=== PATIENT | female | born 1985 | race Two or more races ===

== ENCOUNTER 2018-07-12 13:20 | Observation (INO) | payer BC, OTHER ==
[~2018-07-12] VITALS: Ht 167.6 cm; Wt 93.0 kg
[2018-07-12] MEDS ORDERED: PREN-96 PO (14:09)
[2018-07-12] MEDS ORDERED: LACTATED RINGER'S 500 ML IV ONE ×2 (14:30→17:15)
[2018-07-12 15:23] LABS: Urine Bacteria MOD /hpf (None Seen); Urine Blood 1+ /uL (Negative); Urine Budding Yeast FEW /hpf (None Seen); Urine Mucus FEW (None Seen); Urine Specific Gravity 1.022 (1.001-1.035); Urine WBC 61 /hpf (0 - 5)
[2018-07-12 15:59] LABS: Alcohol, Urine < 3.0 mg/dL (0-5); Amphetamine Screen, Urine NEGATIVE (NEGATIVE); Barbiturate Scree,Urine NEGATIVE (NEGATIVE); Benzodiazephine Screen, Urine NEGATIVE (NEGATIVE); Cannabinoid Screen, Urine NEGATIVE (NEGATIVE); Cocaine Screen, Urine NEGATIVE (NEGATIVE); Opiate Scree,Urine NEGATIVE (NEGATIVE); Phencyclidine Screen, Urine NEGATIVE (NEGATIVE)
[2018-07-12] MEDS ORDERED: ACETAMINOPHEN 325 MG TAB PO ONE (17:00)
[2018-07-12] MEDS ORDERED: LACTATED RINGER'S 1,000 ML IV SCH ×2 (17:15→17:45)
[2018-07-12 18:10] LABS: Basophils # (auto) 0 uL; Basophils % (auto) 0.2 % (0.0-2.0); Eosinophils # (auto) 0 uL; Eosinophils % (auto) 0.2 % (0.0-7.0); Hematocrit 35.2 % (36.0-46.0); Hemoglobin 11.7 g/dL (12.2-16.2); Lymphocytes # (auto) 0.5 uL; Lymphocytes % (auto) 10.3 % (10.0-50.0); Mean Corpuscular Hemoglobin 30.7 pg (28.0-32.0); Mean Corpuscular Hgb Conc. 33.3 g/dL (32.0-36.0); Mean Corpuscular Volume 92.2 fL (80.0-100.0); Monocytes # (auto) 0.7 uL; Monocytes % (auto) 13.3 % (0.0-12.0); Platelet Count (auto) 149 10^3/uL (140-450); Red Blood Cells 3.81 10^6/uL (4.0-5.20); Red Cell Distribution Width 14.5 % (11.8-14.3); White Blood Cell 5.2 10^3/uL (4.4-10.8)
[2018-07-12 18:34] LABS: Albumin 2.6 g/dL (3.4-5.0); Calcium 8.5 mg/dL (8.5-10.1)
[2018-07-12 18:38] LABS: BUN/Creatinine Ratio 5.6; Bilirubin, Total 0.3 mg/dL (0.2-1.0); Total Protein 6.2 g/dL (6.4-8.2)
[2018-07-12] MEDS ORDERED: ceFAZolin 1GM/50ML 50 ML IV SCH (22:00)
== END 2018-07-12 20:15 | disposition home or self-care (01) | DRG 833 ==
LOC: LDRP 13:20
PROVIDERS: ADMIT Obstetrics & Gynecology; ATTEND Obstetrics & Gynecology
DX: O36.8130 Decreased fetal movements, third trimester, not applicable or unspecified (principal); O62.9 Abnormality of forces of labor, unspecified; Z3A.39 39 weeks gestation of pregnancy
CPT/HCPCS: 36415; 59025; 76775; 76818; 80053; 80307; 81001; 81002; 85025; 87086; 96365; G0378; J0690

== ENCOUNTER 2018-07-14 10:35 | Inpatient (IN) | payer BC ==
[2018-07-14] VITALS (8 sets, daily range): BP systolic 100–118; BP diastolic 54–67
[~2018-07-14] VITALS: Ht 167.6 cm; Wt 93.0 kg
[~2018-07-14 10:35] MED LIST: PREN-96 PO
[2018-07-14] MEDS ORDERED: LACTATED RINGER'S 1,000 ML IV SCH (10:56)
[2018-07-14] MEDS ORDERED: LACT. RINGERS/OXYTOCIN 20UNITS 1,000 ML IV SCH ×2 (10:56→11:45)
[2018-07-14] MEDS ORDERED: METHYLERGONOVINE MALEATE 0.2 MG/ML AMP IM PRN (11:00)
[2018-07-14] MEDS ORDERED: CARBOPROST TROMETHAMINE 250 MCG/1ML VIAL IM PRN (11:00)
[2018-07-14] MEDS ORDERED: NALBUPHINE HCL 10 MG/1ml INJECTION IV PRN (11:00)
[2018-07-14] MEDS ORDERED: PHISODERM TOP SOLN 240ML BTL TOP PRN (11:00)
[2018-07-14] MEDS ORDERED: LIDOCAINE 2%HCL (LOCAL ANESTH.) INJ 20ML MDV ID PRN (11:00)
[2018-07-14 11:44] LABS: Basophils # (auto) 0 uL; Basophils % (auto) 0.2 % (0.0-2.0); Eosinophils # (auto) 0 uL; Eosinophils % (auto) 0.8 % (0.0-7.0); Hematocrit 37.3 % (36.0-46.0); Hemoglobin 12.4 g/dL (12.2-16.2); Lymphocytes # (auto) 0.6 uL; Lymphocytes % (auto) 17.2 % (10.0-50.0); Mean Corpuscular Hemoglobin 30.8 pg (28.0-32.0); Mean Corpuscular Hgb Conc. 33.3 g/dL (32.0-36.0); Mean Corpuscular Volume 92.5 fL (80.0-100.0); Monocytes # (auto) 0.3 uL; Monocytes % (auto) 10.5 % (0.0-12.0); Neutrophils # (auto) 2.3 uL; Neutrophils % (auto) 71.3 % (37.0-80.0); Nucleated Red Blood Cells % 0.1 %; Platelet Count (auto) 160 10^3/uL (140-450); Red Blood Cells 4.03 10^6/uL (4.0-5.20); Red Cell Distribution Width 15.1 % (11.8-14.3); White Blood Cell 3.2 10^3/uL (4.4-10.8)
[2018-07-14] MEDS ORDERED: TERBUTALINE SULFATE 1 MG/ML 1ML VIAL SC ONE (11:45)
[2018-07-14 11:54] LABS: Urine Bacteria FEW /hpf (None Seen); Urine Blood 2+ /uL (Negative); Urine Specific Gravity 1.006 (1.001-1.035); Urine WBC 3 /hpf (0 - 5)
[2018-07-14 12:00] LABS: Calcium 8.7 mg/dL (8.5-10.1); Potassium 3.6 mmol/L (3.5-5.1)
[2018-07-14] MEDS: ceFAZolin 1GM/50ML 50 ML IV SCH ×2 (12:00→19:35)
[2018-07-14 12:02] LABS: INR 0.88 (0.9-1.15); Partial Thromboplastin Time 25.9 sec (23.78-33.04); Prothrombin Time 9.5 sec (9.27-12.13)
[2018-07-14 12:06] LABS: Albumin 2.7 g/dL (3.4-5.0); BUN/Creatinine Ratio 7.9; Bilirubin, Total 0.3 mg/dL (0.2-1.0); Total Protein 6.5 g/dL (6.4-8.2)
[2018-07-14] MEDS ORDERED: fentaNYL CITRATE 100 MCG/2 ML VL IV ONE (14:15)
[2018-07-14] MEDS ORDERED: ePHEDrine SULFATE 50 MG/ML AMP IV ONE (14:15)
[2018-07-14] MEDS ORDERED: LIDOCAINE HCL 2 %PF INJ 10ML AMP IJ ONE (14:15)
[2018-07-14] MEDS ORDERED: fentaNYL W ROPIVACAINE 150 ML EPI SCH (14:15)
[2018-07-14] MEDS ORDERED: LIDOCAINE W/ EPINEPHRINE 1 % INJ 30ML ONE (15:10)
[2018-07-14] MEDS ORDERED: PROMETHAZINE HCL 25 MG/ML 1ML IV ONE (15:34)
[2018-07-14] MEDS ORDERED: PROMETHAZINE HCL 25 MG/ML 1ML ONE (15:34)
--- NOTE | 2018-07-14 18:15 | NUR ---
Received report from Danyell JENKINS, assumed care. Initiated assessment. Assistance provided to bathroom. Pt voided 800 cc's. Pt denies dizziness, and pain. POC reviewed. Assessment initiated. See flow sheet for complete data. Assistance with provided at length. Pt affect is flat, does not make eye contact or speak to this RN. Pashto speaking only.Fob at bedside, interpreting. With assist , latched and suckled for a total of one hour.
[2018-07-14] MEDS ORDERED: AMMONIA 0.33 ML INHALANT IN ONE (18:28)
[2018-07-14] MEDS ORDERED: LACT. RINGERS/OXYTOCIN 20UNITS 500 ML IV ONE (19:35)
[2018-07-14] MEDS: WITCH HAZEL-GLYCERIN PAD TOP PRN ×2 (19:38→19:42)
[2018-07-14] MEDS: DERMOPLAST 60ML BOTTLE TOP PRN ×2 (19:39→19:42)
[2018-07-14] MEDS ORDERED: ACETAMINOPHEN 325 MG TAB PO PRN (19:45)
--- NOTE | 2018-07-14 21:00 | NUR ---
Assistance provided with , infant at breast. Pt denies pain.
[2018-07-15 03:25] VITALS: BP 104/60
[2018-07-15] MEDS: ceFAZolin 1GM/50ML 50 ML IV SCH ×3 (04:02→19:50)
[2018-07-15] MEDS: IBUPROFEN 600 MG TAB PO PRN ×2 (04:04→20:43)
[2018-07-15 06:06] LABS: RPR Non Reactive (Non Reactive)
[2018-07-15 07:00] VITALS: BP 126/62
[2018-07-15 09:36] LABS: Basophils # (auto) 0 uL; Basophils % (auto) 0.2 % (0.0-2.0); Eosinophils # (auto) 0 uL; Eosinophils % (auto) 0.6 % (0.0-7.0); Hematocrit 34.3 % (36.0-46.0); Hemoglobin 11.5 g/dL (12.2-16.2); Lymphocytes % (auto) 22.1 % (10.0-50.0); Mean Corpuscular Hemoglobin 31.1 pg (28.0-32.0); Mean Corpuscular Hgb Conc. 33.6 g/dL (32.0-36.0); Mean Corpuscular Volume 92.6 fL (80.0-100.0); Monocytes # (auto) 0.4 uL; Monocytes % (auto) 9.6 % (0.0-12.0); Neutrophils # (auto) 2.9 uL; Neutrophils % (auto) 67.5 % (37.0-80.0); Platelet Count (auto) 140 10^3/uL (140-450); Red Cell Distribution Width 14.7 % (11.8-14.3); White Blood Cell 4.3 10^3/uL (4.4-10.8)
[2018-07-15 11:00] VITALS: BP 110/68
--- NOTE | 2018-07-15 13:48 | NUR ---
DR. ANDINO AT PT BEDSIDE. DR. ANDINO NOTICED PT THAT SHE WILL BE DISCHARGED HOME TOMORROW, STILL AWAITING 48 HOUR BLOOD CULTURE RESULT. READ BACK AND VERIFIED ORDER. WILL CONTINUE TO MONITOR. Addendum: 07/16/18 at 1300 by Kathe Sousa RN DR. ANDINO NOTIFIED PATIENT NOT NOTICED.
[2018-07-15 15:00] VITALS: BP 122/80
[2018-07-15 19:00] VITALS: BP 132/84
[2018-07-15 22:54] VITALS: BP 121/77
[2018-07-16 02:50] VITALS: BP 114/92
[2018-07-16] MEDS: ceFAZolin 1GM/50ML 50 ML IV SCH (04:16)
[2018-07-16 07:00] VITALS: BP 107/59
--- NOTE | 2018-07-16 08:00 | NUR ---
report given to maximo [place] rn patient in stable condition.
--- NOTE | 2018-07-16 08:03 | NUR ---
RECEIVED CARE OF STABLE PATIENT FROM Brianna GRANDA RN, ASSUMING CARE. NO S/S OF DISTRESS OR SOB NOTED.
--- NOTE | 2018-07-16 10:28 | NUR ---
Discharge: Discharge instructions given as ordered provided in Maltese. Pt encouraged to follow up with [facility] as instructed. All questions and concerns addressed. Patient verbalized understanding. Medication reconciliation completed and copy given to patient. Patient encouraged to prepare to depart unit.
--- NOTE | 2018-07-16 10:31 | NUR ---
IV removal IV DC'd with sterile technique, catheter fully intact. Pressure dressing applied to site. Patient tolerated procedure well. Discharged with aftercare instructions per MD.
[2018-07-16 10:32] VITALS: BP 124/81
--- NOTE | 2018-07-16 11:20 | NUR ---
Discharge: Patient taken to vehicle via ambulatory per pt request with all personal belongings, accompanied by staff and family member. No distress noted at time of departure, no adverse changes in status since initial assessment.
== END 2018-07-16 11:20 | disposition home or self-care (01) | DRG 805 ==
LOC: OBSVTOIN 10:35 → LDRP 10:35
PROVIDERS: ADMIT Obstetrics & Gynecology; ATTEND Obstetrics & Gynecology
PROC: 10E0XZZ Delivery of Products of Conception, External Approach (ICD-10-PCS; principal; 2018-07-14)
PROC: 10907ZC Drainage of Amniotic Fluid, Therapeutic from Products of Conception, Via Natural or Artificial Opening (ICD-10-PCS; 2018-07-14)
DX: O69.81X0 Labor and delivery complicated by cord around neck, without compression, not applicable or unspecified (principal); O41.1230 Chorioamnionitis, third trimester, not applicable or unspecified; Z37.0 Single live birth; O62.3 Precipitate labor; Z3A.39 39 weeks gestation of pregnancy
CPT/HCPCS: 36415; 59025; 59409; 80053; 81001; 85025; 85610; 85730; 86592; 86850; 86900; 86901; 87040; 96361; 96366; 96374; 96375; G0378; J0690; J2590; J3010